=== PATIENT | female | born 2000 | race Caucasian/White ===

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

== ENCOUNTER → 2018-04-11 14:06 | Outpatient (CLI) | payer OTHER, SELFPAY ==
[2018-04-11 21:28] LABS: Chlamydia Trachomatis by PCR Negative (Negative); Neisserai gonorrhoeae by PCR Negative (Negative); Probe Check PASS; Sample Adequacy Control PASS; Specimen Processing Control PASS
== END ==
PROVIDERS: Visit Provider Obstetrics & Gynecology
DX: Z11.3 Encounter for screening for infections with a predominantly sexual mode of transmission (principal)
CPT/HCPCS: 87491; 87591

== ENCOUNTER → 2018-07-25 08:01 | Outpatient (CLI) | payer OTHER, SELFPAY ==
--- NOTE | 2018-07-25 08:17 | RAD_ITS ---
STUDY: AIR-CONTRAST UPPER GI SERIES AND SMALL BOWEL FOLLOW-THROUGH EXAMINATION. REASON FOR EXAM: Female, 18 years old. 3 month history of nausea and vomiting. FLUOROSCOPY TIME (if supplied): (1:00) minutes/seconds. 12 fluoroscopic images were obtained. TECHNIQUE: The patient ingested barium. Multiple images of the esophagus stomach and duodenum were obtained. Following this, a small bowel follow-through examination was performed. COMPARISON: None. FINDINGS: The esophagus is unremarkable. There is no evidence of obstruction. No evidence of gastroesophageal reflux. The stomach and duodenum are unremarkable. A small bowel follow-through examination was obtained. The transit time is normal. There is no evidence of intrinsic or extrinsic small bowel disease. The terminal ileum is unremarkable. RAD/Upper GI/w Small Bowel IMPRESSION: Unremarkable upper GI series and small bowel follow-through examination. Electronically Signed: Diego Luke MD at 11:38 EST Tel [phone], Service support ,
== END ==
PROVIDERS: Referring Provider Nurse Practitioner Adult Health; Visit Provider Nurse Practitioner Adult Health
DX: R11.2 Nausea with vomiting, unspecified (principal)
CPT/HCPCS: 74249

== ENCOUNTER 2018-12-04 09:00 | Outpatient (RCR) | payer OTHER, SELFPAY ==
--- NOTE | 2018-12-04 09:03 | BH.SGPN.GN ---
Behaviors/Verbalizations/Mental Status: []Client alert and oriented, casual dress, hygiene tended to. Eye contact fair. Motor activity appropriate. Speech within normal limits. Affect congruent, mood anxious. Tearful at times. Thoughts linear, logical, no signs of hallucinations or delusions. Reviewed client?s symptom tracker, no signs of suicidal ideation, plan, or intent as of today. Client Response/Progress/Benefit: []Pt was a passive participant, attentive to others and shared thoughts and feelings when elicited by therapist. Emotion for today is anxious. Pt shared she was supposed to start the program last week but talked myself out of it and stayed in bed instead. Pt stated this morning she made herself come because knows she needs help. Pt stated she is hoping to work on her PTSD, depression and anxiety. Pt's first day in IOP. Pt seemed to benefit from expressing thoughts and being in a supportive environment. Continued IOP level of care recommended to increase positive coping skills, decrease anxiety and prevent decompensation. Narrative Note: []
--- NOTE | 2018-12-04 10:07 | BH.SGPN.GN ---
Behaviors/Verbalizations/Mental Status: []Client alert and oriented, disheveled appearance. Eye contact good. Motor activity appropriate. Speech within normal limits. Affect flat, mood depressed, anxious. Thoughts linear, logical, no signs of hallucinations or delusions. Client Response/Progress/Benefit: []Client responded well to session, engaged during activity, but appearing frustrated as shown by nonverbals. Client occasionally contributing to discussion. Client was mostly quiet during discussion of social supports and the barriers that people face. However, she nodded in agreement that lacking healthy social supports can lead to more mental health issues. Client reported that she has put herself on the ?backburner? before because she was more focused on helping supports. Identified benefits of social support as less stress and having someone to listen. Client was engaged during the group activity and did well to manage emotions despite frustrations at times. Client communicated with peers and made connections to her daily life. Appeared to benefit from gaining awareness of barriers that keep people from seeking social support as well as connecting with peers. Client?s first day of IOP. No progress to document. Client to continue IOP to prevent decompensation and reduce intensity and duration of anxiety.
--- NOTE | 2018-12-04 13:16 | BH.COMM ---
Communication Note - Communication with Client Communication Note: Met with pt to complete initial paperwork for IOP. Pt was not expected to start this AM as she was scheduled to start last week and was a no-show. No signficant changes since pre-admission screening. Reports that she is most likely going to drop out of college this semester due to mental health. She denies any active suicidal ideations, plan, or intent. Reports anxiety and somatic symptoms (vomiting) related to anxiety about starting today.
--- NOTE | 2018-12-05 11:08 | BH.SGPN.GN ---
Behaviors/Verbalizations/Mental Status: [Pt eye contact fair, casually dressed, motor activity appropriate - displaying psychosomatic sx of anxiety EAB expressed nausea and leaving the room several times due to feeling overwhelmingly anxious, speech normal rate and tone, mood depressed and anxious, constricted affect, thoughts linear and intact, no evidence of delusions or hallucinations] Client Response/Progress/Benefit: [Pt receptive of session, provided some input to discussion though struggling with significant anxiety throughout which impacted ability to fully engage. Pt actively listening as group made connections between barriers faced in the challenge activity and those present in utilizing social supports in daily life. She did well to provide some contribution to discussion about the different types of support; however, left the room on occasion due to anxiety causing nausea. Upon return, pt attentive as the group identified strategies for improving development of new supports and utilization of current supports. This was evidenced by maintaining eye contact and nodding. Pt seemed to benefit from identifying a type of support she would like to improve upon and creating actionable steps to promote follow-through. Indicated wanting to improve personal support to increate connectedness with others. Expressed plans to do so by reaching out to her supports and communicating her concerns and needs. Client to continue IOP level of care to prevent decompensation, improve anxiety management, as well as maintain safety.] Narrative Note: []
--- NOTE | 2018-12-08 10:30 | BH.SGPN.GN ---
Addendum entered and electronically signed by ANTHONY Alston 08/20/19 22:41: Note amended to add process group #1 for this date as it was not previously added due to technical error. Please advise. process # of Participants:8 participants Goal of Group: [] The goal of today's group was to check-in with client's mood, stressors, and positives, and review goals Staff Interventions: [] Therapist used open-ended questions to elicit information about client's current stressors and mood state. Therapist was supportive by using active listening and reflection. AP - Behaviors/Verbalizations/Mental Status: [] Eye contact is good. Motor activity is appropriate. Appearance is casual. Speech is Appropriate. Mood is depressed, irritable. Affect is constricted. Thoughts are linear and logical. No evidence of psychosis. Reviewed daily check in sheet and pt reports suicidal ideations as a 3/5, denies intent. Therapist will follow-up to further assess for risk. Client Response/Progress/Benefit: [] Pt was a mostly participant in group discussion. Emotion for today is anxious. Shared that her she continues to be frustrated with her parents as she feels they don?t really understand what is impacting her mental health and noted that she does not quite feel comfortable enough to share with them the extent of her mental health stressors as she does not feel they will be able to handle it. 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 Discussed anxiety about an upcoming sorority formal event and indicated fearing the event may be a trauma trigger for her. Responded well and appeared to benefit from supportive feedback and calming strategies recommended by the group. Receptive of pro?s and con?s of going to the event versus not going. Progress in increased levels of engagement. Pt to continue in IOP to maintain safety, stabilize mood, reduce anxiety and depression, and prevent decompensation. Original Note: Behaviors/Verbalizations/Mental Status: []Client alert and oriented, neatly dressed and groomed. Eye contact good. Motor activity appropriate. Speech within normal limits. Affect congruent, mood euthymic, anxious. Thoughts linear, logical, no signs of hallucinations or delusions. Client Response/Progress/Benefit: []Client responded well to session, positive contributions. Client commented on the quote and shared ?it?s easier to stay in bed and close yourself off, but it?s not better.? Client appeared to connect with the topic of personal pitfalls and how they can prevent mental health progress. Client shared not using coping skills is an example of a personal pitfall. Client participated in the group activity and took on a leadership role. When the group continued to struggle client shared ?let?s be done.? The group was able to connect this back to their daily lives and how easy it can be to give up on the path to recovery. Client stated in order to overcome personal pitfalls one needs awareness and to regulate emotions. ?Client appeared to benefit from increasing self-awareness of personal pitfalls. Client?s first week in IOP. Client to continue IOP to prevent decompensation and increase mood stability.
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
--- NOTE | 2018-12-13 10:16 | BH.COMM ---
Communication Note - Communication with Client Communication Note: Pt scheduled for IOP group on this date however did not show or call to cancel. This therapist left a discrete message encouraging pt to reschedule. Will follow-up.
--- NOTE | 2018-12-14 09:50 | BH.COMM ---
Communication Note - Communication with Client Communication Note: Pt returned therapist call and indicated plans to attend group tomorrow, 12/14/18, and 12/15/18. Pt will meet for individual session on 12/14/18 as well.
--- NOTE | 2018-12-14 09:52 | BH.COMM ---
Communication Note - Communication with Client Communication Note: Pt scheduled for individual and group sessions on this date however did not show or call to cancel. This therapist attempted to reach out to reschedule however pt anable to be reached at this time. Will follow-up.
--- NOTE | 2018-12-15 09:05 | BH.SGPN.GN ---
Addendum entered and electronically signed by SELVIN Osuna 08/22/19 09:11: Addendum entered to include missing Group Psychotherapy Session Note #2. Group Topic: []Boundaries # of Participants: []9 Goal of Group: []To increase understanding of importance of boundaries and gain awareness of how boundaries can impact mental health. Staff Interventions: Therapist facilitated group discussion about defining boundaries. Therapist led discussion about importance of boundaries, assisting group members with identifying how boundaries can impact mental health. Therapist provided psychoeducation about the different types of boundaries. Therapist led activity to increase self-awareness of current boundary setting behaviors. Start Time: 10:18am Duration: 52 minutes Associate Creative Director: [facility] Behaviors/Verbalizations/Mental Status: Client alert and oriented, casually dressed and groomed. Eye contact fair. Motor activity appropriate. Speech within normal limits. Affect congruent to topic being discussed, mood anxious and dysthymic. Thoughts linear, logical, no signs of hallucinations or delusions. Client Response/Progress/Benefit: Client responded well to session, attentive and participating in small group discussion. Group identified the benefits to setting boundaries as well as the consequences of not setting healthy boundaries. Client stated she recognizes importance of setting boundaries and doesn?t typically have any problem with saying ?no? to others. Client reported she struggles with saying ?no? when it comes to her family. Client engaged during discussion of the different types of boundaries and engaged in the self-assessment activity. Client seemed to benefit from increased awareness how poor boundaries can negatively impact mental health. Client to continue IOP to increase coping and prevent decompensation. Original Note: Addendum entered and electronically signed by ANTHONY Alston 08/21/19 15:54: Amended to add missing second group documentation. Please advise. Group Topic: [Boundaries II] # of Participants: [5] Goal of Group: [To learn the different ways of setting boundaries and increase awareness of personal boundary style. Identify strategies to promote healthy boundaries. ] Staff Interventions: [Processed activity to help gain insight into current boundary setting behavior. Therapist provided psychoeducation about the three different ways of setting boundaries and led discussion about each style. Therapist had clients identify current boundary setting style and how current style is impacting their mental health. Therapist explored strategies to help promote healthy boundaries. ] Individual Note: Behaviors/Verbalizations/Mental Status: [Client alert and oriented, casual dress, hygiene appropriate. Eye contact good. Motor activity appropriate. Speech within normal limits. Affect congruent, mood agitated and dysthymic. Thoughts linear, logical, no signs of hallucinations or delusions. ] Client Response/Progress/Benefit: [Pt responded well to session, semi-active participant AEB willingness to provide input and take notes. Pt did well to engage in the boundary self-assessment activity and worked with group to further process. Pt discussed that she has been becoming much more aware of how her boundaries differ depending on the person and the impacts of inconsistent boundaries on her mental health. Appeared to benefit from group discussion on strategies for further improving personal boundaries. Identified wanting to improve her ability to be more assertive with her emotional boundaries and open to discussing her emotions with her supports rather than continuing to minimize or bottle up her emotions. Noted this reinforces sx of depression. Progress noted in pt ability to identify impact of current boundaries on mental health progress and emotion regulation skills. Pt to continue IOP tx to maintain gains made, improve communication and boundary setting skills, and continue to promote healthy change behaviors.] Original Note: Behaviors/Verbalizations/Mental Status: []Client alert and oriented, casually dressed and groomed. Eye contact good. Motor activity restless. Speech within normal limits. Affect congruent-tearful, mood anxious, depressed. Thoughts linear, logical, no signs of hallucinations or delusions. Reviewed client?s symptom tracker, 1/5 for thoughts of suicide. 0/5 for plan, or intent as of 12/15/18. Client Response/Progress/Benefit: []Client responded well to session, quiet, but participating when prompted. Client reports feeling ?disappointed and anxious.? Client reported she feels bad about not making it to group this week. Client shared she has been sick. Client reported she is also struggling because one of her close friends is ?being explosive and cruel? to client because client is leaving [employer]. Client shared she had to set a boundary with this friend, which client is proud of herself for doing, but she also felt sad about having to set the boundary. Client?s other mental health win is that she scheduled her move out day at school which she has been ?dragging my feet on.? Client appeared to benefit from connecting with peers. Due to inconsistent attendance, client?s progress is limited. Client to continue IOP to prevent decompensation and increase mood stability.
--- NOTE | 2018-12-15 09:55 | BH.COMM ---
Communication Note - Communication with Client Communication Note: Pt returned this therapist phone call and indicated that she had overslept today which is why she was not in attendance. Pt and therapist discussed concerns with inconsistent attendance and pt indicated understanding program attendance requirements. Pt expressed plans to attend IOP group tomorrow, 12/15/18 and will meet briefly with this therapist to reschedule missed individual session.
--- NOTE | 2018-12-18 15:45 | BH.COMM ---
Communication Note - Communication with Client Communication Note: Pt scheduled for IOP group and individual sessions on this date. Pt however reports suffering from a migraine and is unable to get out of bed to comw into group. Pt reports plans to attend IOP tomorrow, however will need to reschedule individual session.
--- NOTE | 2018-12-19 09:10 | BH.SGPN.GN ---
Behaviors/Verbalizations/Mental Status: [] Eye contact is good. Motor activity is appropriate. Appearance is casual. Speech is Appropriate. Mood is anxious/depressed. Affect is congruent. Thoughts are linear and logical. No evidence of psychosis. Reviewed daily check in sheet and reported 1/5/ for suicidal ideations and 0/5 for intent. Therapist notified Client Response/Progress/Benefit: [] Pt was an active participant in group discussion. Emotion for today is tense and anxious. Shared that she is moving back in with her parents today which is stressful and anxiety producing for her. Discussed stressor and conflict hx with parents. Reports feeling unsupported at home and thinks that parents don't appreciate or listen to her thoughts and concerns which further impacts her negative self-esteem, anxiety, and hopelessness. Group provided feedback and suggestions to improve communication. Pt appears to shut-down or avoid when challenged or overwhelmed. Pt was open to suggestions. Continues to report somatic symptoms associated with anxiety (vomiting, GI upset) which is impacting her ability to attend IOP on consistent basis. Continues to report panic on a semi-daily basis as well. Limited progress however poor attendance. Will continue in IOP to maintain safety, prevent decompensation, and improve daily functioning. Narrative Note: []
--- NOTE | 2018-12-19 10:15 | BH.SGPN.GN ---
Behaviors/Verbalizations/Mental Status: []Client alert and oriented, casually dressed. Eye contact good. Motor activity appropriate. Speech within normal limits. Affect constricted, mood dysthymic. Thoughts linear, logical, no signs of hallucinations or delusions. Client Response/Progress/Benefit: []Client responded well to session, providing occasional input and engaged in activity. Client commented on the quote and shared the load one carries is ?all the shit that happens to you like mental illness and trauma.? Client reported in order to carry the ?load? one needs healthy coping skills. Client reported healthy coping skills are more beneficial long-term. However, most people turn to unhealthy coping skills such as drugs or avoidance because of the short-term relief. Client engaged in the activity and was able to make the connection that one must have a strong base of internal and external coping skills. Client reported one cannot only rely on one person or one type of coping skill ?because if it doesn?t work then you have nothing.? Client appeared to benefit from increasing awareness of the importance of developing healthy coping skills. Progress continues to be limited due to variable attendance. Client to continue IOP to prevent decompensation and increase emotional regulation.
--- NOTE | 2018-12-19 11:20 | BH.SGPN.GN ---
Behaviors/Verbalizations/Mental Status: [Pt eye contact fair to good, casually dressed, motor activity appropriate, speech normal rate and soft tone, mood anxious and depressed, constricted affect, thoughts linear and intact - appearing distracted by own thoughts at times, no evidence of delusions or hallucinations.] Client Response/Progress/Benefit: [Pt mostly attentive to group discussion on different types of coping skills AEB maintaining eye contact and nodding; however, at times appearing to become distracted by own thoughts and disengaged. She identified connecting with the importance of practicing using different healthy coping skills to begin replacing unhealthy means for coping. Indicated often struggling with falling back on unhealthy habits during times of stress. Pt seemed to benefit from increasing repertoire of healthy coping skills and displayed progress in ability to recognize types of coping skills she would benefit from further developing. Identified wanting to improve use of self love related coping skills by practicing self-forgiveness. Pt recommended to continue IOP level of care to promote utilization of healthy coping skills, improve healthy decision making, improve emotion regulation, as well as prevent decompensation and maintain safety.] Narrative Note: []
--- NOTE | 2018-12-19 13:56 | BH.MDN ---
Multi-Disciplinary Note - Note 45-min Individual Time Started:: 12:22 Date: 12/19/18 Purpose of session/treatment goals addressed:: Purpose of session was to assess current sx, stressors, and means for coping. Another purpose was to discuss pt concerns in taking leave from school and moving home. Additional topics included completing treatment goals. Eye Contact:: Good, Other - tearful throughout Motor Activity:: Appropriate Appearance:: Casual Speech:: Appropriate Mood:: Anxious, Depressed Affect:: Congruent Thoughts:: Linear, Logical, Racing, No evidence of hallucinations/delusions noted Staff Interventions:: Therapist provided a safe environment for pt to vent frustration. Asked open ended questions to ellicit information reagrding pt sx, stressors, concerns, and meands for coping. Applied strengths-based approach and commended pt on improved attendance. Used MT techniques to increase insight regarding barriers to change and complete establishment of goals. Client Response:: Pt receptive of session and engaged throughout. Therapist commended pt for attending group on this date despite ongoing issues with illness impacting attendance. Pt indicated that she often struggles with migraine headaches and nausea causing physical illness which prevents her attendance and leads to anxiety of others judging her for being ill. She shared that due to continues physical symptoms as well as issues in managing her depression and anxiety, she has opted to take medical leave from [employer] [facility]. Pt shared that she decided to move home with her parents in [place] as she hoped this would reduce stress and provide her with the resources she needs to improve mental health sx; however, has begun to second-guess this decision. Went on to vent frustrations with her parent?s lack of empathy or understanding regarding pt mental health and noted feeling as though they are ashamed of her. She went on to describe a tense relationship with her father and believes that he has unrealistic expectations regarding her progress and level of functioning. Pt additionally expressed concerns about limited independence at home which she feels will worsen depression. Willing to work with this therapist on identifying benefits of moving home despite frustrations in and beginning to establish healthy ways of coping as she works on improving sx of depression and anxiety. Pt reports treatment goals of wanting to improve health boundary setting, increase self-esteem, decreased anxiety, and identify improved sense of purpose in life. Risks/Concerns:: Pt denies any active SI/HI at this time and indicates ability to maintain safety. She discussed motivations to live as increasing independence, her friends, and reaching future goals. Reports an ability to maintain safety and willing to seek help should she feel unable to. Pt does report ongoing issues with nausea and vomiting which impact ability to engage in regular daily activities as well as prevent ability to remain in IOP session for enire length of group and has led to poor attendance. Progress Toward Goals/Plan:: Some progress AEB increased attendance and willingness to engage. Progress unable to be fully assessed as pt has had multiple issues related to attendance and has only attended 2 full days of group and 3 half days since admission. Pt reports a strong desire to engage in the treatment process and improve her overall management of anxiety and depression. Pt able to identify one small goal as going for a hike at the local park after group. Will continue in IOP to increase coping skills, maintain safety, stabilize mood, and improve daily functioning.
--- NOTE | 2018-12-19 14:39 | BH.MDN_ITS ---
Multi-Disciplinary Note - Note 45-min Individual Time Started:: 12:22 Date: 12/19/18 Purpose of session/treatment goals addressed:: Purpose of session was to assess current sx, stressors, and means for coping. Another purpose was to discuss pt concerns in taking leave from school and moving home. Additional topics included completing treatment goals. Eye Contact:: Good, Other - tearful throughout Motor Activity:: Appropriate Appearance:: Casual Speech:: Appropriate Mood:: Anxious, Depressed Affect:: Congruent Thoughts:: Linear, Logical, Racing, No evidence of hallucinations/delusions noted Staff Interventions:: Therapist provided a safe environment for pt to vent frustration. Asked open ended questions to ellicit information reagrding pt sx, stressors, concerns, and meands for coping. Applied strengths-based approach and commended pt on improved attendance. Used [place] techniques to increase insight regarding barriers to change and complete establishment of goals. Client Response:: Pt receptive of session and engaged throughout. Therapist commended pt for attending group on this date despite ongoing issues with illness impacting attendance. Pt indicated that she often struggles with migraine headaches and nausea causing physical illness which prevents her attendance and leads to anxiety of others judging her for being ill. She shared that due to continues physical symptoms as well as issues in managing her dep ression and anxiety, she has opted to take medical leave from [employer] [facility] [employer]. Pt shared that she decided to move home with her parents in [place] as she hoped this would reduce stress and provide her with the resources she needs to improve mental health sx; however, has begun to second-guess this decision. Went on to vent frustrations with her parent?s lack of empathy or understanding regarding pt mental health and noted feeling as though they are ashamed of her. She went on to describe a tense relationship with her father and believes that he has unrealistic expectations regarding her progress and level of functioning. Pt additionally expressed concerns about limited independence at home which she feels will worsen depression. Willing to work with this therapist on identifying benefits of moving home despite frustrations in and beginning to establish healthy ways of coping as she works on improving sx of depression and anxiety. Pt reports treatment goals of wanting to improve health boundary setting, increase self-esteem, decreased anxiety, and identify improved sense of purpose in life. Risks/Concerns:: Pt denies any active SI/HI at this time and indicates ability to maintain safety. She discussed motivations to live as increasing independence, her friends, and reaching future goals. Reports an ability to maintain safety and willing to seek help should she feel unable to. Pt does report ongoing issues with nausea and vomiting which impact ability to engage in regular daily activities as well as prevent ability to remain in IOP session for enire length of group and has led to poor attendance. Progress Toward Goals/Plan:: Some progress AEB increased attendance and willingness to engage. Progress unable to be fully assessed as pt has had multiple issues related to attendance and has only attended 2 full days of group and 3 half days since admission. Pt reports a strong desire to engage in the treatment process and improve her overall management of anxiety and depression. Pt able to identify one small goal as going for a hike at the local park after group. Will continue in IOP to increase coping skills, maintain safety, stabilize mood, and improve daily functioning.
== END 2018-12-19 23:59 ==
LOC: BHIOP 09:00
PROVIDERS: Referring Provider Psychiatry & Neurology Psychiatry; Visit Provider Psychiatry & Neurology Psychiatry
DX: F33.2 Major depressive disorder, recurrent severe without psychotic features (principal); F41.1 Generalized anxiety disorder; F43.10 Post-traumatic stress disorder, unspecified; R11.2 Nausea with vomiting, unspecified; G43.909 Migraine, unspecified, not intractable, without status migrainosus; Z72.0 Tobacco use; Z79.899 Other long term (current) drug therapy; R45.851 Suicidal ideations; Z91.5 Personal history of self-harm; F12.90 Cannabis use, unspecified, uncomplicated
CPT/HCPCS: H0035; 90834; 90853

== ENCOUNTER 2018-12-21 09:00 | Outpatient (RCR) | payer OTHER, SELFPAY ==
--- NOTE | 2018-12-21 09:10 | BH.SGPN.GN ---
Behaviors/Verbalizations/Mental Status: [] Eye contact is good. Motor activity is appropriate. Appearance is casual. Speech is Appropriate. Mood is depressed. Affect is flat. Thoughts are linear and logical. No evidence of psychosis. Reviewed daily check in sheet with no reports of suicidal ideations. Client Response/Progress/Benefit: [] Pt was an active participant in group discussion. Shared with the group numerous struggles this week. Tearful during check-in. Reports that she feels like she has no control over her life or her future. Reports her anxiety is high and she is overwhelmed with everything. Upcming family event and she does not wish to talk about her dropping out of college and MH struggles. Group provided feedback that she can set limits and boundaries to the conversation. Group provided encouragement and feedback which she benefited from. Currently not using any skills. Does not feel in control of life and emotions. No progress noted. Will continue in IOP to prevent decompensation, stabilize emotions, and improve daily functioning. Narrative Note: []
--- NOTE | 2018-12-21 11:10 | BH.SGPN.GN ---
Behaviors/Verbalizations/Mental Status: []Client alert and oriented, casually dressed and groomed. Eye contact good. Motor activity appropriate. Speech within normal limits. Affect flat, mood dysthymic, anxious. Thoughts linear, logical, no signs of hallucinations or delusions. Client Response/Progress/Benefit: []Client responded well to session, active participant. Client further processed the group activity and shared that learning from mistakes and tuning out the negatives helped the group accomplish the activity. Client completed the fear of failure worksheet and, but she declined to share what fear of failure was keeping her from. Client reported unrealistic expectations and feeling like a disappointment to others are her barriers to overcoming fear of failure. Client shared ?no one has told me I?m a disappointment, but I feel that way.? Client helped the group identify strategies to overcome fear of failure and client selected a goal to help her overcome her fear of failure. Client?s goal is to work on self-acceptance and reminding herself it is normal to have setbacks. Client appeared to benefit from gaining awareness and setting a goal to reduce fear of failure. Client showing progress in increasing self-awareness of negative thoughts, but she continues to struggle with managing symptoms and emotional dysregulation. Client to continue IOP to prevent decompensation and increase use of coping skills.
--- NOTE | 2018-12-22 09:06 | BH.SGPN.GN ---
Behaviors/Verbalizations/Mental Status: []Client alert and oriented, casually dressed, hair unkempt. Eye contact good. Motor activity appropriate. Speech within normal limits. Affect flat-tearful, mood dysthymic, irritable, anxious. Thoughts linear, logical, no signs of hallucinations or delusions. Reviewed client?s symptom tracker, 1/5 for thoughts of suicide and 0/5 for intent and plan. Client reports this is her baseline. Client Response/Progress/Benefit: []Client responded well to session, appeared receptive to feedback from peers. Client reports feeling ?like shit? today. Client stated she has felt ?already discouraged? ever since moving home. Client shared her mother has been yelling at her and not giving her a chance to succeed. The group provided emotional support and ideas for increasing positive social support. Client identified her current mental health wins to be spending time with her grandparents yesterday as well as no isolating after IOP. Client reported she wanted to go home to her room after group, but instead she went to [facility] and had lunch with friends. Client appeared to benefit from receiving support from peers. Progress noted in client not isolating yesterday. However, client continues to struggle with managing her emotions in healthy ways and finding healthy supports.
--- NOTE | 2018-12-22 10:15 | BH.SGPN.GN ---
Behaviors/Verbalizations/Mental Status: []Client alert and oriented, casually dressed, hair unkempt. Eye contact good. Motor activity appropriate. Speech within normal limits. Affect congruent, mood irritable, dysthymic. Thoughts linear, logical, no signs of hallucinations or delusions. Client Response/Progress/Benefit: []Client was an active participant in group discussion and activity. Group worked together to identify the benefits of setting goals which included; increased motivation, maintenance in progress, accountability, sense of accomplishment, and hope. Group discussed the barriers to following through with completing a goals which included; high expectations, low motivation, negative self-talk, putting other?s needs first, hopelessness, and not knowing where to start. Client was attentive during psychoeducation on developing SMART (Specific, Measurable, Achievable, Realistic, Timely) goals as a tool to help with goal setting. Client was positive and helped the group set realistic goals during the activity. Benefited from group by learning effective strategies for goal-setting and identifying barriers to completing goals.
--- NOTE | 2018-12-27 11:23 | BH.SGPN.GN ---
Behaviors/Verbalizations/Mental Status: [Pt eye contact fair to good - often looking at phone, casually dressed, motor activity appropriate, speech normal rate and tone, mood dysthymic, congruent affect, thoughts linear and intact - appearing distracted by thoughts and items in room, no evidence of delusions or hallucinations.] Client Response/Progress/Benefit: [Pt receptive of session, provided some input throughout, though at times appeared to be distracted by own thoughts or her phone. However she did well to take notes and redirect attention. Pt worked with the group to make connections between the challenge activity and utilizing social supports in daily life. Reflected that a barrier in using current supports is lack of understanding. She improved in attentiveness during discussion on different types of support and benefits each can provide. Pt benefited from identifying a type of support she would like to improve and how this would aid in progress towards improving her own mental health. She indicated wanting to enhance personal supports to better connect with people outside of her family. Plans to do so by beginning to reach out and build trust with others. Pt to continue IOP level of care to prevent decompensation, reduce anxiety, and increase application of internal coping mechanisms.] Narrative Note: [.]
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
--- NOTE | 2018-12-28 10:12 | BH.SGPN.GN ---
Behaviors/Verbalizations/Mental Status: [Pt alert and oriented, casually dressed, appropriate grooming. Eye contact fair to good. Motor activity WNL. Speech appropriate rate/tone. Affect congruent, mood depressed and anxious. Thoughts linear, logical, no signs of hallucinations or delusions.] Client Response/Progress/Benefit: [Pt responded well to session, actively listening during discussion. Pt connected with the topic of communication, indicated agreeing with peers that ineffective communication can negatively impact mental health and relationships. Pt worked with group to identify potential communication potholes noting that tone and misinterpretation can impact effectiveness of communication. She helped the group discuss the different communication styles including the payoffs and costs of each. Pt discussed that passive-aggressive communication characteristics include lack of communication which may continue to prevent problems from being resolved. Pt appeared to benefit from increasing awareness of how communication impacts mental health. Progress noted in ability to engage with the group and begin connecting materials to own life. Recommended to continue IOP to promote healthy change behaviors, increase use of coping skills for depression and anxiety, and prevent decompensation. ] Narrative Note: []
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
--- NOTE | 2018-12-29 10:12 | BH.SGPN.GN ---
Behaviors/Verbalizations/Mental Status: [Eye contact is good. Motor activity WNL. Appearance is casual. Speech is Appropriate. Mood is agitated, euthymic. Affect is congruent. Thoughts are linear and logical. No evidence of psychosis.] Client Response/Progress/Benefit: [Pt was an active participant in group activity and discussion, provided input throughout reflection portion of activity. Pt worked with the group to define anger and its causes, as well as the internal and external impacts of anger. Discussed internal impacts of unhealthy anger which included; anxiety, guilt, and emotional exhaustion. Pt reports external impact of unhealthy anger as; relationship issues, difficulty meeting others expectations. Benefited from group by increasing awareness of the internal and external impacts of unhealthy anger. Progress noted in pt ability to identify her own anger related responses and the impact this has on her mental health and ability to communicate with supports. Continued IOP tx to decrease depression and anxiety, continue to promote healthy skill application, and prevent decompensation. ] Narrative Note: []
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
--- NOTE | 2019-01-03 10:15 | BH.SGPN.GN ---
Behaviors/Verbalizations/Mental Status: []Client alert and oriented, neatly dressed and groomed. Eye contact fair. Motor activity appropriate. Speech within normal limits. Affect flat, mood irritable, depressed, anxious. Thoughts linear, logical, no signs of hallucinations or delusions. Client Response/Progress/Benefit: []Client was active during the beginning of session, but then she became withdrawn. Client connected with the topic and able to identify common barriers that keep people stuck from moving forward. Client shared barriers are keeping her from happiness and feeling good in life. Client declined to share her current or desired reality, with the group. Client did identify her personal resilience factors in her current reality to be ?I?m still trying.? Worked with group to identify barriers to reaching desired reality which include; past experiences and mental health. Benefited from group as client received supportive statements from peers and increased awareness of internal barriers.
--- NOTE | 2019-01-04 15:42 | BH.COMM ---
Communication Note - Communication with Client Communication Note: Pt scheduled to attend IOP program for group and individual sessions on this date however did not show for scheduled appt. Therapist contacted pt who indicated oversleeping which is why she missed appointments for that day. Pt reports plans to attend IOP tx on next scheduled date, 01/05/19.
--- NOTE | 2019-01-05 15:32 | BH.COMM ---
Communication Note - Communication with Client Communication Note: Pt scheduled for IOP and individual sessions on this date. Pt called and spoke with the program nurse indicating that she would not be in attendance on this date and would return to group 01/08/19.
--- NOTE | 2019-01-08 09:10 | BH.SGPN.GN ---
Behaviors/Verbalizations/Mental Status: [] Eye contact is good. Motor activity is appropriate. Appearance is casual. Speech is Appropriate. Mood is anxious. Affect is congruent. Thoughts are linear and logical. No evidence of psychosis. Reviewed daily check in sheet and no reports of suicidal ideations or intent. Client Response/Progress/Benefit: [] Pt was an active participant in group discussion. Emotion for today is worried. Shared with the group that she had a good conversation with her family this past weekend while on a road trip. It was a conversation she had been avoiding however was able to be assertive and set boundaries with her father. The conversation centered around her current status, her mental health, and goals. Overall she felt that it went well and that her family was supportive, which has not always been the case. Increased confidence in her ability to manage her anxiety stating that she talked with family w/o having a panic attack. Progress noted per pt report. Benefited from group support, encouragement, and feedback. Will continue in IOP to maintain gains and decrease impact of MH on functioning. Narrative Note: []
--- NOTE | 2019-01-08 10:20 | BH.SGPN.GN ---
Behaviors/Verbalizations/Mental Status: []Client alert and oriented, casually dressed and groomed. Eye contact good. Motor activity appropriate. Speech within normal limits. Affect flat, mood depressed, irritable. Thoughts linear, logical, no signs of hallucinations or delusions. Client Response/Progress/Benefit: []Client responded well to session, contributing to discussion. Client appeared to connect with the topic of personal pitfalls and how they can prevent mental health progress. Client shared ?if we look back at pitfalls in anger, we reinforce our emotions and stay stuck.? Client identified examples of pitfalls such as lack of awareness, not using coping skills, and negative self-talk. Client reported self-awareness is talamantes in avoiding personal pitfalls. Client participated in the group activity and connected that without communication and self-awareness, it is nearly impossible to avoid pitfalls. Client able to use clear communication and calming strategies to help the group stay calm.? Client appeared to benefit from increasing self-awareness of how pitfalls impact mental health. Client is demonstrating progress as shown by her report of trying not to isolate. However, client continues to struggle with a depressed mood, crying spells, and emotional dysregulation.
--- NOTE | 2019-01-08 11:20 | BH.SGPN.GN ---
Behaviors/Verbalizations/Mental Status: []Client alert and oriented, casually dressed and groomed. Eye contact good. Motor activity appropriate. Speech within normal limits. Affect full, mood euthymic. Thoughts linear, logical, no signs of hallucinations or delusions. Client Response/Progress/Benefit: []Provided input throughout group discussion and was attentive to feedback from peers. Client completed a worksheet where she identified her own personal pitfalls. Personal pitfalls included: black and white thinking, tendency to engage in self-fulfilling prophecies, avoidance, rumination, and unrealistic expectations. Group worked together to identify strategies to overcome personal and general pitfalls which included; setting small goals, positive self-talk, looking at evidence to challenge negative thoughts, mindfulness, self-reflection, and practicing self-compassion. Client identified one pitfall she wants to work on preventing and one coping skill to help client do this. Client?s pitfall was rumination and her coping skill was to practice self-reflection and mindfulness when she catches herself ruminating. Benefited from identifying personal and general pitfalls and strategies to over these pitfalls. Client has made strides in increasing self-awareness, but she continues to report difficulty functioning at her baseline.
--- NOTE | 2019-01-09 07:58 | BH.MDN_ITS ---
Multi-Disciplinary Note - Note 45-min Individual Time Started:: 09:22 Date: 01/09/19 Purpose of session/treatment goals addressed:: Therapist asked open ended and furthering questions to gather additional information regarding pt's current symptoms, stressors, and progress in treatment. Therapist used empathic responses to provide emotional validation. Provided supportive feedback. Therapist applied HI techniques to promote healthy change behaviors. Provided a list of providers in the [facility] specializing in trauma specific counseling. Eye Contact:: Good Motor Activity:: Appropriate Appearance:: Casual Speech:: Appropriate Mood:: Euthymic Affect:: Congruent Thoughts:: Linear, Logical, No evidence of hallucinations/delusions noted Staff Interventions:: Therapist asked open ended and furthering questions to gather additional information regarding pt's current symptoms, stressors, and progress in treatment. Therapist used empathic responses to provide emotional validation. Provided supportive feedback. Therapist applied HI techniques to promote healthy change behaviors. Provided a list of providers in the [facility] specializing in trauma specific counseling. Client Response:: Pt open to meeting with this therapist and engaged throughout session. Discussed feeling more positive and less anxious on this date which she attributes to having a discussion with her parents about boundaries and their expectations for her regarding her mental health treatment and return to school. Shared they were more supportive than she had expected which was relieving. Went on to discuss feeling she has made improvements in managing her mental health symptoms of anxiety and depression, indicating noticing an overall decrease in sx severity. Shared spending less time isolating and even reached out to old friends in the area and played soccer. Discussed increased hope for her future and has experienced decreased panic and nausea episodes as a result. Shared feeling that she has benefited from IOP program but would like to discharge to begin individual trauma focused therapy as this is the area she feels is continuing to hold her back from additional progress. Additionally cited the commute from [place] as beginning to become more financially difficult and time consuming. Therapist in agreement with pt request to discharge to recieve more trauma specific counseling. Pt already connected with psychiatry services and was provided a list of trauma informed agencies in her area. Risks/Concerns:: None. Denied having any active suicidal ideations, plan, or intent as of this date. Progress Toward Goals/Plan:: Client has demonstrated progress with identifying and communicating her emotions and needs more regularly both in IOP and with positive supports. Client shared she has made progress in reducing symptoms of depression and anxiety but continues to experiences trauma triggers and related anxiety. She indicates that she would like to seek continued treatment in a trauma specific setting to continue to reduce anxiety and better manage triggers. Client reports utilizing healthy coping skills such as talking to her parents about her needs and concerns, spending time outside, and taking small steps to regulate her morning routine and spend less time in bed. Client continues to have anxiety, but has been challenging her negative thoughts and plans to follow up with outpatient counseling to continue progress with managing anxiety and fear Time Stopped:: 10:02
--- NOTE | 2019-01-09 10:20 | BH.SGPN.GN ---
Behaviors/Verbalizations/Mental Status: []Client alert and oriented, casually dressed and groomed. Eye contact good. Motor activity slowed. Speech within normal limits. Affect flat, mood depressed, anxious. Thoughts linear, logical, no signs of hallucinations or delusions. Client Response/Progress/Benefit: []Client receptive of session, mostly passive participant. Participated in the activity and was attentive to the discussion of the group topic of resilience. Client agreed with the group definition of resilience as being able to overcome adversity and ?spring back? despite lives challenges. Client listened to examples of how resilience can positively impact mental health and wellness. Client agreed with peers that being flexible and resilient has more benefits than being rigid and resistant. Client engaged in small group discussion about the various strategies that can help strengthen one's resilience and provided examples of the benefits of self-awareness and courage and confidence in increasing resilience. Client seemed to benefit from increased awareness of various components that can contribute to resilience. Progress limited as client continues to report depressed mood and difficulty with processing her trauma. Client may be more appropriate for ongoing trauma specific counseling.
--- NOTE | 2019-01-09 11:17 | BH.SGPN.GN ---
Behaviors/Verbalizations/Mental Status: [Client alert and oriented, casually dressed and appropriately groomed. Eye contact fair to good. Motor activity appropriate. Speech within normal limits. Affect congruent to topic being discussed, mood dysthymic. Thoughts linear, logical, no signs of hallucinations or delusions.] Client Response/Progress/Benefit: [Client engaged participant as evidenced by client providing input throughout discussion and listening attentively to peers. Client worked cooperatively with peers to identify how each resiliency factor can help increase personal resiliency. At times she appeared to disengage and became distracted by phone, though able to re-engage with prompt. Client reported she wants to work on the resiliency component of ?accept change as a part of living?. Client stated she will work on increasing personal resilience by challenging her perspective about her current living situation and spending time focusing on small positives each day. Client appeared to benefit from identifying goal to improve personal resilience factors. Client to continue IOP to continue use of healthy coping skills, continue to identify and challenge distorted thoughts, increase mood stability, and prevent decompensation.] Narrative Note: []
--- NOTE | 2019-01-10 07:59 | BH.AFTERPLAN ---
Aftercare Plan - Demographics Treatment End Date:: 01/10/19 Psychiatrist:: Rolando Cano Psychiatrist Office #:: [phone] [facility] [place] Therapist:: Araseli Clayton Therapist Phone #:: [phone] - Medications Home Medications: Home Medications ALPRAZolam [Xanax] 0.5 mg PO QHS PRN PRN 12/06/18 Duloxetine Hcl [Cymbalta] 90 mg PO DAILY 12/06/18 - Plan Details Progress/Aftercare Plan Details:: Client has demonstrated progress with identifying and communicating her emotions and needs more regularly both in [facility] and with positive supports. Client shared she has made progress in reducing symptoms of depression and anxiety but continues to experiences trauma triggers and related anxiety. She indicates that she would like to seek continued treatment in a trauma specific setting to continue to reduce anxiety and better manage triggers. During admission in IOP program she has seen improvement in her ability to complete daily tasks and has reduced use of sleeping as a primary coping mechanism. Client additionally reports a notable reduction in somatic symptoms indicating she has not had any recent stress induced nausea and is experiencing fewer headaches. Client reports she has increased awareness of warning signs and is taking steps to begin increasing socialization with supports outside of her family. Client reports utilizing healthy coping skills such as talking to her parents about her needs and concerns, spending time outside, and taking small steps to regulate her morning routine and spend less time in bed. Client continues to have anxiety, but has been challenging her negative thoughts and plans to follow up with outpatient counseling to continue progress with managing anxiety and fear. Strategies for Success:: 1. set small goals! Focus on one thing at a time! 2. Reach out and communicate with supports! Even when you don't feel like it. 3. Remind yourself that in this moment you are okay, remember to breathe and that you can walk away 4. Know your warning signs and limits! 5. SELF-CARE! 6. Challenge negative thoughts and focus on what you've progressed on so far, give yourself some credit for the fact that you are seeking help and working on managing your triggers. - Appointments Appointments/Referrals to Other Services:: Client encouraged to follow up with psychiatry with Dr. Washington. Client encouraged to follow up with outpatient counseling and has been given a list of recommended outpatient providers in her area who can provide more trauma focused treatment.
--- NOTE | 2019-01-18 16:35 | BH.IGGP_ITS ---
Aftercare Plan - Demographics Treatment End Date:: 01/10/19 Psychiatrist:: Rolando Cano Psychiatrist Office #:: [phone] [facility] Therapist:: Araseli Clayton Therapist Phone #:: [phone] - Medications Home Medications: Home Medications ALPRAZolam [Xanax] 0.5 mg PO QHS PRN PRN 12/06/18 Duloxetine Hcl [Cymbalta] 90 mg PO DAILY 12/06/18 - Plan Details Progress/Aftercare Plan Details:: Client has demonstrated progress with identifying and communicating her emotions and needs more regularly both in [facility] and with positive supports. Client shared she has made progress in reducing symptoms of depression and anxiety but continues to experiences trauma triggers and related anxiety. She indicates that she would like to seek continued tr eatment in a trauma specific setting to continue to reduce anxiety and better manage triggers. During admission in IOP program she has seen improvement in her ability to complete daily tasks and has reduced use of sleeping as a primary coping mechanism. Client additionally reports a notable reduction in somatic symptoms indicating she has not had any recent stress induced nausea and is experiencing fewer headaches. Client reports she has increased awareness of warning signs and is taking steps to begin increasing socialization with supports outside of her family. Client reports utilizing healthy coping skills such as talking to her parents about her needs and concerns, spending time outside, and taking small steps to regulate her morning routine and spend less time in bed. Client continues to have anxiety, but has been challenging her negative thoughts and plans to follow up with outpatient counseling to continue progress with managing anxiety and fear. Strategies for Success:: 1. set small goals! Focus on one thing at a time! 2. Reach out and communicate with supports! Even when you don't feel like it. 3. Remind yourself that in this moment you are okay, remember to breathe and that you can walk away 4. Know your warning signs and limits! 5. SELF-CARE! 6. Challenge negative thoughts and focus on what you've progressed on so far, give yourself some credit for the fact that you are seeking help and working on managing your triggers. - Appointments Appointments/Referrals to Other Services:: Client encouraged to follow up with psychiatry with Dr. Washington. Client encouraged to follow up with outpatient counseling and has been given a list of recommended outpatient providers in her area who can provide more trauma focused treatment.
--- NOTE | 2019-01-18 17:01 | BH.DS_ITS ---
Discharge Summary - Demographics Date of Admission:: 12/04/18 Discharge Date: 01/10/19 Presenting Problems at Admission:: The patient is a 18-year old female who was referred for treatment in the intensive outpatient mental health treatment program by her Mother who reports decreased functioning following a series of traumatic events at school. Pt referred for increased anxiety and depression resulting in panic attacks on an almost daily basis, difficulties managing anxiety and trauma triggers at college which has resulted in pt deciding to transfer to a college closer to home and commute, increased sleep, depression, and passive SI. Pt reports a history of anxiety and depression. Discharge Diagnoses:: Major Depressive Disorder, recurrent, severe; Generalized Anxiety Disorder; PTSD; polysubstance abuse and dependence Reason for Discharge:: Client has reported a desire to discharge from IOP program as she would like to peruse treatment focused on addressing trauma at the individual level. Given pt reduction in overall DSM-5 scores, no longer reports suicidal ideation, and indicates increased ability to begin taking small steps towards healthy skill application, this therapist is in agreement with pt request for discharge. Will provide referral resources for trauma specific counseling. - Treatment Progress During Treatment & Response: Client has demonstrated progress with identifying and communicating her emotions and needs more regularly both in IOP and with positive supports. Client shared she has made progress in reducing symptoms of depression and anxiety but continues to experiences trauma triggers and related anxiety. She indicates that she would like to seek continued treatment in a trauma specific setting to continue to reduce anxiety and better manage triggers. During admission in IOP program client struggled with maintaining consistent attendance and often cancelled or rescheduled appointments due to isolative behaviors, however did well to improve attendance as she began to experience decreased symptoms. She has seen improvement in her ability to complete daily tasks and has reduced use of sleeping as a primary coping mechanism. However, at times continues to fall back into relying on sleep as an avoidance mechanism and would benefit from continued work on promoting healthy change behaviors via behavior activation. Client additionally reports a notable reduction in somatic symptoms indicating she has not had any recent stress induced nausea and is experiencing fewer headaches. Client reports she has increased awareness of warning signs and is taking steps to begin increasing socialization with supports outside of her family. Client reports utilizing healthy coping skills such as talking to her parents about her needs and concerns, spending time outside, and taking small steps to regulate her morning routine and spend less time in bed. Despite identification of healthy coping skills, she continues to rely on substance use as her primary means for managing triggers causing anxiety and depression, which may have impeded further progress towards treatment goals. Client continues to have anxiety, but has been c hallenging her negative thoughts and plans to follow up with outpatient counseling to continue progress with managing anxiety and fear. Issues Still to be Addressed:: Pt can continue to benefit from ongoing work on improving self-esteem, improving management of intrusive thoughts and ruminations, and reducing isolation and avoidance as primary coping means which will improve familial and social functioning, as well as continue to challenge use of external locus of control. Discharge Recommendations/Instructions:: Client encouraged to follow up with psychiatry with Dr. Washington. Client encouraged to follow up with outpatient counseling and has been given a list of recommended outpatient providers in her area who can provide more trauma focused treatment. Discharge Handout: Complete Discharge Handout with client on aftercare options and continuity of care.
== END 2019-01-10 14:00 | disposition home or self-care (01) ==
LOC: BHIOP 09:00
PROVIDERS: Referring Provider Psychiatry & Neurology Psychiatry; Visit Provider Psychiatry & Neurology Psychiatry
DX: F33.9 Major depressive disorder, recurrent, unspecified (principal); F41.1 Generalized anxiety disorder; F43.10 Post-traumatic stress disorder, unspecified; F19.10 Other psychoactive substance abuse, uncomplicated
CPT/HCPCS: H0035; 90834; 90853

== ENCOUNTER → 2019-07-27 18:35 | Outpatient (CLI) | payer OTHER, SELFPAY | PROVIDERS: Referring Provider Obstetrics & Gynecology; Visit Provider Obstetrics & Gynecology | DX: Z12.4 Encounter for screening for malignant neoplasm of cervix (principal) ==

== ENCOUNTER → 2021-05-22 16:15 | Outpatient (CLI) | payer OTHER, SELFPAY ==
[2021-05-22 17:21] LABS: Absolute Lymphocyte Count 1.02 X10^3/uL (0.83-4.51); Absolute Neutrophil Count 9.4 X10^3/uL (2.0-7.7); Basophil# 0.02 X10^3/uL; Basophil% 0.2 % (0-1); Hematocrit 43.8 % (37-47); Hemoglobin 14.7 g/dL (12.0-15.0); Lymphocyte # 1.02 X10^3/ul (0.83-4.51); Lymphocyte % 9.3 % (19-41); Mean Corp Hgb Conc 33.6 g/dL (32-36); Mean Corpuscular Hgb 29.4 pg (27.0-32.0); Mean Corpuscular Volume 87.6 fL (81-99); Monocyte# 0.51 X10^3/uL; Monocyte% 4.6 % (0-10); NRBC Flagged by Analyzer 0 % (0-5); Neutrophil % 85.6 % (47-70); Platelet Count 284 K/mm3 (150-450); RBC Distribution Width CV 13.4 % (11.6-14.6); RBC Distribution Width SD 43.3 fl (35.1-43.9)
[2021-05-22 17:56] LABS: Vitamin B12 1021 pg/mL (211-911)
[2021-05-22 18:05] LABS: Erythrocyte Sedimentation Rate 14 mm/hr (0-30)
[2021-05-22 19:36] LABS: ALB/GLOB Ratio 1.2 RATIO (0.9-2.4); AST(SGOT) 9 U/L (15-37); Alanine Aminotransfer ALT/SGPT 17 U/L (13-56); Albumin, Serum 4.5 g/dL (3.2-5.0); Alkaline Phosphatase 53 U/L (45-117); Anion Gap 12 (5-15); BUN 7 mg/dL (7-18); BUN/Creat Ratio 8.6 RATIO (10-20); CRP < 2.90 mg/L (0.0-3.0); Calcium,Total 9.2 mg/dL (8.5-10.1); Chloride 107 mmol/L (98-107); Creatinine, Serum 0.81 mg/dL (0.55-1.02); EST Glomerular Filtration Rate 93 mL/min (>60); Est Glom Filt Rate - Afr Amer 112 mL/min (>60); Globulin 3.7 g/dL (2.2-4.2); Glucose 101 mg/dL (74-106); Potassium 3.4 mmol/L (3.5-5.1); Prolactin 9.4 ng/mL; Protein, Total 8.2 g/dL (6.4-8.2); Sodium Level 139 mmol/L (136-145); Thyroid Stim Hormone (TSH) 0.83 uIU/mL (0.358-3.74)
[2021-05-25 18:07] LABS: Endomysial Antibody IgA Negative (Negative)
[2021-05-25 23:25] LABS: Immunoglobulin A 118 mg/dL (87-352); t-Transglutaminase IgA <2 U/mL (0-3)
== END ==
PROVIDERS: PCP Internal Medicine; Visit Provider Internal Medicine Gastroenterology
DX: R11.2 Nausea with vomiting, unspecified (principal)
CPT/HCPCS: 36415; 80053; 82607; 82784; 83516; 84146; 84443; 85025; 85652; 86140; 86255

== ENCOUNTER 2021-05-26 12:27 | Day surgery (SDC) | payer OTHER, SELFPAY ==
[2021-05-26] VITALS (7 sets, daily range): BP systolic 101–130; BP diastolic 56–86; PULSE 65–81; RESP 16; TEMP 35.9–36.4; O2SAT 97–100; BMI 28.9
--- NOTE | 2021-05-26 | IMM_PTH ---
PATIENT: TJ KAMINSKI LOC: [facility] U#:[id number] AGE/SX: 21/F ROOM: RE05/26/[address]: Dr. Shree Cartwright DO : 2000 BED: DIS: 05/26/2021 SPEC #: [id number] RECD: 05/28/21 13:17 STATUS: SHEYLA REQ #: [id number] JUN: 05/26/21 00:[address]: Shree Cartwright DEPT: IMMUNOHISTOCHEMISTRY RECD BY: Savanah Lazcano ENTERED: 05/28/21 13:19 SP TYPE: IMMUNO OTHR DR: Dr. Nadeen Rodriguez DO Tissues: C - Ileum, NOS Procedures: BCL-2 (add) CD20 (add) CD45 (add) CD5 (add) CD79A (add) CD3 (initial) PHYSICIAN & INSTITUTION [facility] [id number] SPECIMEN INFORMATION: Tissue Source: C - Terminal ileum, biopsy Clinical Info: Nausea, vomiting, diarrhea Specimen Number: [id number] CPT code: 67337, 16356 x5 METHODOLOGY: Deparaffinized sections of prefer/formalin-fixed tissue or PAP/DQ stained slides are incubated with monoclonal/polyclonal antibodies/oligonucleotide probes. Localization is made via biotin free immunoperoxidase method. Appropriate controls are performed and reacted as expected. Results on target cell population are indicated in the following table: RESULTS: ANTIBODY / CLONE RESULT Block C CD3 (PS1) positive CD5 (SP10) positive CD20 (L26) positive CD79a (11E3) positive CD45 (RP2/18) positive BCL-2 (bcl-2/100/D5) negative (in germinal center) These tests were developed and their performance characteristics determined by [facility]. They may not have been cleared or approved by the U.S. Food and Drug Administration. The FDA has determined that such clearance or approval is not necessary. The above immunohistochemical/dualISH markers are ordered and reviewed by the Pathologist. INTERPRETATION: C. Terminal ileum, biopsy: Prominent lymphoid aggregates, polytypic in nature, favor benign. LILIBETH:rashaad 05/29/2021 Case has been reviewed in consultation with Dr. Claudio who concurs with the above diagnosis. IDC:AM
--- NOTE | 2021-05-26 | COLBX_PTH ---
PATIENT: TJ KAMINSKI LOC: [facility] U#:[id number] AGE/SX: 21/F ROOM: RE05/26/[address]: Dr. Shree Cartwright DO : 2000 BED: DIS: 05/26/2021 SPEC #: [id number] RECD: 05/26/21 15:30 STATUS: SHEYLA ADRYAN #: [id number] JUN: 05/26/21 00:[address]: Shree Cartwright DEPT: SURGICAL PATHOLOGY RECD BY: Tee Davila ENTERED: 05/27/21 09:53 SP TYPE: COLON BX OTHR DR: Dr. Nadeen Rodriguez DO Tissues: A - Duodenum, NOS B - Esophageal mucous membrane C - Ileum, NOS D - COLON BIOPSY Procedures: Special Stain Group II Surgery Specimen Level IV Alcian Blue/PAS (control) HEADER OPERATION: Colonoscopy, EGD ([facility] [place]) PRE-OP DIAGNOSIS: Nausea, vomiting, diarrhea TISSUE SUBMITTED: A ? Duodenum biopsy, B ? Distal esophagus biopsy, C ? Terminal ileum biopsy, D ? Random colonic biopsies MICROSCOPIC DIAGNOSIS A. Duodenum, biopsy: Fragments of duodenal mucosa with mild congestion, hemorrhage and Gema gland hyperplasia. B. Distal esophagus, biopsy: Fragments of gastroesophageal mucosa with mild chronic inflammation. Intestinal metaplasia (goblet cell metaplasia) is not identified. See comment. C. Terminal ileum, biopsy: Fragments of small intestinal mucosa with focal minimal acute inflammation. Prominent lymphoid aggregates, polytypic in nature, favor benign. D. Colon, random biopsy: Fragments of colonic mucosa, no pathologic diagnosis. SJ:rashaad 05/28/2021 COMMENT B. Alcian blue/PAS stain with matched control is used in the evaluation of the specimen. C. Prominent lymphoid aggregates are noted in all fragments of the specimen. One gland shows crypt abscess formation. Ulceration or granuloma are not seen. Immunohistochemistry ([id number]) shows lymphoid aggregates to be polytypic in nature, favor benign. Correlation with clinical, endoscopic findings and appropriate follow up are necessary. Case has been reviewed in consultation with Dr. Claudio who concurs with the above diagnosis. IDC:AM MICROSCOPIC DESCRIPTION Slides are reviewed. GROSS DESCRIPTION A - Received in fixative is one container labeled with the patient's name and designated duodenum biopsy. The specimen consists of multiple irregular fragments of light weiner soft tissue that in aggregate measure 0.5 x 0.4 x 0.1 cm. The specimen is totally submitted in one cassette. B - Received in fixative is one container labeled with the patient's name and designated distal esophagus biopsy. The specimen consists of multiple irregular fragments of light weiner soft tissue that in aggregate measure 0.5 x 0.3 x 0.1 cm. The specimen is totally submitted in one cassette. C - Received in fixative is one container labeled with the patient's name and designated terminal ileum biopsy. The specimen consists of multiple irregular fragments of light weiner soft tissue that in aggregate measure 1.5 x 0.3 x 0.1 cm. The specimen is totally submitted in one cassette. D - Received in fixative is one container labeled with the patient's name and designated random colonic biopsy. The specimen consists of multiple irregular fragments of light weiner soft tissue that in aggregate measure 1.5 x 0.7 x 0.1 cm. The specimen is totally submitted in one cassette. / SJ:rg 05/27/21 TC:3 CPT: 44005 x4, 75279
[2021-05-26] MEDS: Lactated Ringers 1,000 ML 100 ML IV (13:00)
[2021-05-26 13:11] LABS: Internal QC Validated? YES +Cl - CLEAR BKGD; Pregnancy, Urine Negative Negative
--- NOTE | 2021-05-26 13:54 | PCM.HP.BLA ---
History and Physical Date of Admission: 05/26/21 HPI HPI Details: TJ KAMINSKI, is a 21 F who presents to the office today for the evaluation of frequent and recurrent nausea nausea with vomiting. This developed about 3 years ago and she was seen in the office after developing acute onset nausea vomiting. She was at that time diagnosed with possible marijuana hyperemesis. She says that she was smoking quite frequently but has cut back and has not been smoking since this last severe episode of nausea vomiting. Since 05/05/21 her nausea with vomiting has gotten so bad that she has gone to the emergency room on 3 occasions to get IV fluids and IV potassium. Additional symptoms shakiness, black/green stool, pain located in stomach with secondary pain in her back. She has had similar episodes for the last three years that occurs a couple times a year lasting 4-5 days. ROS Const Constitutional: Positive for fatigue, fever(s), headache(s), weakness and weight change Eyes Eyes: Positive for blurry vision, irritation and Light sensitivity ENT ENT: Positive for headache(s), difficulty swallowing and sore throat; No tongue swelling or throat swelling Resp Respiratory: Positive for shortness of breath Cardio Cardiology: Positive for chest pain at rest, dyspnea on exertion and difficulty breathing Gastro GI: Positive for abdominal pain, bloating, change in bowel habits, diarrhea, heartburn, difficulty swallowing, Black,tarry stools, nausea/dyspepsia and vomiting Genitourinary-Female: No difficulty urinating or burning urination Musc Musculoskeletal: Positive for back pain, muscle cramps, muscle weakness, numbness, stiffness and tingling Skin Skin: Positive for dry skin and rash; No itchy eyes Neuro Neurology: Positive for weakness, headache(s), numbness and tingling Psych Psychiatric: Positive for anxiety, Positive for depression, Positive for Compulsive Behavior, Positive for inattentiveness, Positive for obsessions/compulsions, Positive for Temper Tantrums and Positive for other (Combative) Endo Endocrine: Positive for cold intolerance, fatigue, heat intolerance, increased thirst/drinking and weight change Aller/Imm Allergy/Immunologic: No itchy eyes, throat swelling or tongue swelling Alejandro/Lymp Hematologic/Lymphatic: No easy bleeding, easy bruising or enlarged lymph nodes Quality Reporting Tobacco Screening ([facility] 138) Smoking Status: Current some day smoker Assessment and Plan Assessment and Plan (1) Nausea & vomiting: Status: Acute Orders: Orders: Comprehensive Metabolic Profil Today CRP Today Erythrocyte Sed Rate Today Prolactin Today Celiac Disease Profile Today Thyroid Stim Hormone (TSH) Today Vitamin B12 Today CBC W/Diff, Automated Today Colonoscopy 05/26/21 EGD 05/26/21 Plan - Dr. Shree Cartwright, DO: The differential diagnosis for nausea vomiting though include cyclic vomiting syndrome along with marijuana hyperemesis. She had a gastric emptying study did not show any signs of gastroparesis. I am sure she has elements of gastroesophageal reflux disease. We will also evaluate for hiatal hernia, celiac disease and peptic ulcer disease. She also is on spironolactone which can cause nausea vomiting secondary to elevation in her prolactin level. I will draw a prolactin level. I will give her her a scopolamine patch, oral magnesium and a short course of alprazolam. I will also check a CMP, CBC, CRP, ESR, celiac disease profile, TSH, B12. (2) Diarrhea: Status: Acute Plan - Dr. Swann Friend, DO: The differential diagnosis for her diarrhea include IBS with diarrhea, less likely Crohn's disease, less likely infectious colitis and less likely microscopic colitis. She will undergo colonoscopy with evaluation of the terminal ileum and colon.
--- NOTE | 2021-05-26 14:41 | OP.EGD_ITS ---
Patient Name: Miguel Martin Procedure Date: 05/26/2021 1:51 PM Date of : 2000 Age: 21 Procedure: Upper GI endoscopy Indications: Epigastric abdominal pain Providers: Shree Cartwright DO Medicines: Monitored Anesthesia Care Patient Profile: This is a 21 year old female. Refer to note in patient chart for documentation of history and physical. Patient has symptoms. The symptoms first began March. Complications: No immediate complications. Procedure: Pre-Anesthesia Assessment: - Prior to the procedure, a History and Physical was performed, and patient medications and allergies were reviewed. The patient is competent. The risks and benefits of the procedure and the sedation options and risks were discussed with the patient. All questions were answered and informed consent was obtained. Patient identification and proposed procedure were verified by the physician in the pre-procedure area. Mental Status Examination: normal. Airway Examination: normal oropharyngeal airway and neck mobility. Respiratory Examination: clear to auscultation. CV Examination: normal. Prophylactic Antibiotics: The patient requires prophylactic antibiotics. Prior Anticoagulants: The patient has taken no previous anticoagulant or antiplatelet agents. ASA Grade Assessment: I - A normal, healthy patient. After reviewing the risks and benefits, the patient was deemed in satisfactory condition to undergo the procedure. The anesthesia plan was to use no sedation or anesthesia. Immediately prior to administration of medications, the patient was re-assessed for adequacy to receive sedatives. The heart rate, respiratory rate, oxygen saturations, blood pressure, adequacy of pulmonary ventilation, and response to care were monitored throughout the procedure. The physical status of the patient was re-assessed after the procedure. After obtaining informed consent, the endoscope was passed under direct vision. Throughout the procedure, the patient's blood pressure, pulse, and oxygen saturations were monitored continuously. The Endoscope was introduced through the mouth, and advanced to the second part of duodenum. The upper GI endoscopy was accomplished without difficulty. The patient tolerated the procedure well. Moderate Sedation: Moderate (conscious) sedation was administered by the endoscopy nurse and supervised by the endoscopist. The patient's oxygen saturation, heart rate, blood pressure and response to care were monitored. Scope In: 2:07:47 PM Scope Out: 2:11:43 PM Total Procedure Duration Time 0 hours 3 minutes 56 seconds Findings: LA Grade B (one or more mucosal breaks greater than 5 mm, not extending between the tops of two mucosal folds) esophagitis with no bleeding was found. Biopsies were taken with a cold forceps for histology. Estimated blood loss was minimal. The entire examined stomach was normal, except for a 1 cm hiatal hernia. Patchy mildly erythematous mucosa without active bleeding and with no stigmata of bleeding was found in the first portion of the duodenum. Biopsies for histology were taken with a cold forceps for evaluation of celiac disease. Estimated blood loss was minimal. Impression: - LA Grade B reflux esophagitis. Biopsied. - Normal stomach. - Erythematous duodenopathy. Biopsied. Recommendation: - Discharge patient to home. - Resume previous diet. - Continue present medications. - Await pathology results. - Repeat upper endoscopy in 1 year for surveillance. - Return to GI office in 1 week. Procedure Code(s): --- Professional --- 54343, Esophagogastroduodenoscopy, flexible, transoral; with biopsy, single or multiple CPT copyright 2017 [employer]. All rights reserved. The codes documented in this report are preliminary and upon inspector eyeglass review may be revised to meet current compliance requirements. Shree Cartwright DO 05/26/2021 2:40:34 PM This report has been signed electronically. Number of Addenda: 1 Note Initiated On: 05/26/2021 1:51 PM Addendum Number: 1 Addendum Date: 04/22/2022 4:18:06 PM MAC was used instead of moderate sedation for this patient. Shree Cartwright DO 04/22/2022 4:18:13 PM This report has been signed electronically.
--- NOTE | 2021-05-26 14:41 | OP.CCLET_ITS ---
04/22/2022 Nadeen Rodriguez Do Re : Upper GI endoscopy procedure for Miguel Martin Dear Michael This procedure was performed on Wednesday, May 26, 2021. My impressions and recommendations are as follows: Impressions : - LA Grade B reflux esophagitis. Biopsied. - Normal stomach. - Erythematous duodenopathy. Biopsied. Recommendations : - Discharge patient to home. - Resume previous diet. - Continue present medications. - Await pathology results. - Repeat upper endoscopy in 1 year for surveillance. - Return to GI office in 1 week. My findings are described in the full procedure note, which is enclosed. If I can be of further assistance, please feel free to contact me at . Sincerely, Shree Cartwright, 05/26/2021 2:40:34 PM This report has been signed electronically.
--- NOTE | 2021-05-26 14:46 | OP.CCLET_ITS ---
04/22/2022 Nadeen Rodriguez Do Re : Colonoscopy procedure for Miguel Martin Dear Michael This procedure was performed on Wednesday, May 26, 2021. My impressions and recommendations are as follows: Impressions : - Very poor rectal tone. found on perianal exam. - Congested mucosa in the sigmoid colon. - Mucosal ulceration. Biopsied. - Ileitis. Biopsied. Recommendations : - Discharge patient to home. - Resume previous diet. - Continue present medications. - Await pathology results. - Repeat colonoscopy in 5 years for surveillance. - Return to GI office in 1 week. My findings are described in the full procedure note, which is enclosed. If I can be of further assistance, please feel free to contact me at . Sincerely, Shree Cartwright, 05/26/2021 2:46:24 PM This report has been signed electronically.
--- NOTE | 2021-05-26 14:46 | OP.COLON_ITS ---
Patient Name: Miguel Martin Procedure Date: 05/26/2021 2:14 PM Date of : 2000 Age: 21 Procedure: Colonoscopy Indications: Chronic diarrhea Providers: Shree Cartwright DO Medicines: Monitored Anesthesia Care Patient Profile: This is a 21 year old female. Refer to note in patient chart for documentation of history and physical. Patient has symptoms. The symptoms first began March. She is status post EGD (normal) three years ago. Last Colonoscopy: none. The patient's first colonoscopy is today. Complications: No immediate complications. Procedure: Pre-Anesthesia Assessment: - Prior to the procedure, a History and Physical was performed, and patient medications and allergies were reviewed. The patient is competent. The risks and benefits of the procedure and the sedation options and risks were discussed with the patient. All questions were answered and informed consent was obtained. Patient identification and proposed procedure were verified by the physician in the pre-procedure area. Mental Status Examination: normal. Airway Examination: normal oropharyngeal airway and neck mobility. Respiratory Examination: clear to auscultation. CV Examination: normal. Prophylactic Antibiotics: The patient requires prophylactic antibiotics. Prior Anticoagulants: The patient has taken no previous anticoagulant or antiplatelet agents. ASA Grade Assessment: I - A normal, healthy patient. After reviewing the risks and benefits, the patient was deemed in satisfactory condition to undergo the procedure. The anesthesia plan was to use no sedation or anesthesia. Immediately prior to administration of medications, the patient was re-assessed for adequacy to receive sedatives. The heart rate, respiratory rate, oxygen saturations, blood pressure, adequacy of pulmonary ventilation, and response to care were monitored throughout the procedure. The physical status of the patient was re-assessed after the procedure. - Prior to the procedure, a History and Physical was performed, and patient medications and allergies were reviewed. The patient is competent. The risks and benefits of the procedure and the sedation options and risks were discussed with the patient. All questions were answered and informed consent was obtained. Patient identification and proposed procedure were verified by the physician in the pre-procedure area. Mental Status Examination: alert and oriented. Airway Examination: normal oropharyngeal airway and neck mobility. CV Examination: normal. Prophylactic Antibiotics: The patient does not require prophylactic antibiotics. Prior Anticoagulants: The patient has taken no previous anticoagulant or antiplatelet agents. ASA Grade Assessment: II - A patient with mild systemic disease. After reviewing the risks and benefits, the patient was deemed in satisfactory condition to undergo the procedure. The anesthesia plan was to use moderate sedation / analgesia (conscious sedation). Immediately prior to administration of medications, the patient was re-assessed for adequacy to receive sedatives. The heart rate, respiratory rate, oxygen saturations, blood pressure, adequacy of pulmonary ventilation, and response to care were monitored throughout the procedure. The physical status of the patient was re-assessed after the procedure. - Sedation was administered by an endoscopy nurse. The sedation level attained was moderate. - The heart rate, respiratory rate, oxygen saturations, blood pressure, adequacy of pulmonary ventilation, and response to care were monitored throughout the procedure. - The physical status of the patient was re-assessed after the procedure. After I obtained informed consent, the scope was passed under direct vision. Throughout the procedure, the patient's blood pressure, pulse, and oxygen saturations were monitored continuously. The colonoscope was introduced through the anus and advanced to the terminal ileum. The colonoscopy was performed without difficulty. The patient tolerated the procedure well. The quality of the bowel preparation was good. Moderate Sedation: Moderate (conscious) sedation was administered by the endoscopy nurse and supervised by the endoscopist. The patient's oxygen saturation, heart rate, blood pressure and response to care were monitored. Scope In: 2:17:37 PM Scope Withdrawal Time 0 hours 9 minutes 41 seconds Scope Out: 2:30:05 PM Total Procedure Duration Time 0 hours 12 minutes 28 seconds Findings: The perianal exam findings include Very poor rectal tone. An area of moderately congested mucosa was found in the sigmoid colon. A continuous area of nonbleeding ulcerated mucosa with no stigmata of recent bleeding was present in the sigmoid colon. Biopsies were taken with a cold forceps for histology. Verification of patient identification for the specimen was done. Estimated blood loss was minimal. Patchy inflammation, moderate in severity and characterized by congestion (edema), friability and linear erosions was found in the terminal ileum. Biopsies were taken with a cold forceps for histology. Verification of patient identification for the specimen was done. Estimated blood loss was minimal. Impression: - Very poor rectal tone. found on perianal exam. - Congested mucosa in the sigmoid colon. - Mucosal ulceration. Biopsied. - Ileitis. Biopsied. Recommendation: - Discharge patient to home. - Resume previous diet. - Continue present medications. - Await pathology results. - Repeat colonoscopy in 5 years for surveillance. - Return to GI office in 1 week. Procedure Code(s): --- Professional --- 44890, Colonoscopy, flexible; with biopsy, single or multiple CPT copyright 2017 [employer]. All rights reserved. The codes documented in this report are preliminary and upon pattern perforating machine operator review may be revised to meet current compliance requirements. Shree Cartwright DO 05/26/2021 2:46:24 PM This report has been signed electronically. Number of Addenda: 1 Note Initiated On: 05/26/2021 2:14 PM Addendum Number: 1 Addendum Date: 04/22/2022 4:18:23 PM MAC was used instead of moderate sedation for this patient. Shree Cartwright DO 04/22/2022 4:18:27 PM This report has been signed electronically.
== END 2021-05-26 15:44 | disposition home or self-care (01) ==
LOC: EN 12:28 → AC 12:30
PROVIDERS: Anesthesiology; PCP Internal Medicine; Referring Provider Internal Medicine; Visit Provider Internal Medicine Gastroenterology
PROC: 0DJD8ZZ Inspection of Lower Intestinal Tract, Via Natural or Artificial Opening Endoscopic (ICD-10-PCS; CPT 45378; principal; 2021-05-26 13:25)
DX: K21.00 Gastro-esophageal reflux disease with esophagitis, without bleeding (principal); K31.89 Other diseases of stomach and duodenum; K52.9 Noninfective gastroenteritis and colitis, unspecified; F41.0 Panic disorder [episodic paroxysmal anxiety]; F32.A Depression, unspecified; Z79.899 Other long term (current) drug therapy; Z87.891 Personal history of nicotine dependence
CPT/HCPCS: 43239; 45380; 81025; 88305; 88313; 88341; 88342; J7120; J2405

== ENCOUNTER → 2021-06-02 10:27 | Outpatient (CLI) | payer OTHER, SELFPAY | PROVIDERS: PCP Internal Medicine; Referring Provider Internal Medicine Gastroenterology; Visit Provider Internal Medicine Gastroenterology | DX: K52.9 Noninfective gastroenteritis and colitis, unspecified (principal) | CPT/HCPCS: 36415 ==

== ENCOUNTER → 2021-06-26 14:23 | Outpatient (CLI) | payer OTHER, SELFPAY ==
[2021-06-26 16:14] LABS: Progesterone Level 0.46 ng/mL (See Comment); T3 Total - Triiodothyronine 1.22 ng/mL (0.6-1.81)
[2021-06-26 16:19] LABS: Follicle Stimulating Hormone 5.6 mIU/mL; Free T3 3.3 pg/mL (2.18-3.98); Prolactin 3.4 ng/mL; T4 Free Direct 1.31 ng/dL (0.76-1.46); Thyroid Stim Hormone (TSH) 0.55 uIU/mL (0.358-3.74)
[2021-07-03 20:37] LABS: 17-Hydroxyprogesterone 26 ng/dL (.)
== END ==
PROVIDERS: PCP Internal Medicine; Visit Provider Obstetrics & Gynecology
DX: R63.5 Abnormal weight gain (principal); N92.6 Irregular menstruation, unspecified
CPT/HCPCS: 36415; 82533; 82627; 82670; 83001; 83498; 84144; 84146; 84270; 84403; 84439; 84443; 84480; 84481; 82626

== ENCOUNTER 2021-12-09 12:29 | Outpatient (CLI) | payer OTHER, SELFPAY ==
[2021-12-12 11:08] LABS: Chlamydia By Nucleic Acid AMP Negative (Negative)
[2021-12-12 11:26] LABS: Gonococcus By Nucleic Acid AMP Negative (Negative)
[2021-12-15 20:06] LABS: HPV Reflexed? NOT INDICATED
== END 2021-12-09 23:59 | disposition home or self-care (01) ==
LOC: LABSPEC 12:30
PROVIDERS: PCP Internal Medicine; Visit Provider Obstetrics & Gynecology
DX: Z12.4 Encounter for screening for malignant neoplasm of cervix (principal); Z11.3 Encounter for screening for infections with a predominantly sexual mode of transmission
CPT/HCPCS: 87491; 87591; 88175; G0145

== ENCOUNTER → 2022-06-04 | Outpatient (CLI) | payer OTHER, SELFPAY ==
--- NOTE | 2022-06-04 09:51 | NM_ITS ---
CLINICAL: 22-year-old diabetic female with history of chronic nausea. RADIONUCLIDE HEPATOBILIARY SCINTIGRAPHY COMPARISON: None available FINDINGS: Following the intravenous administration of 5.2 mCi of 99m Tc Mebrofenin, hepatobiliary images reveal: 1. Relatively prompt and homogeneous radiopharmaceutical concentration is noted by a normal sized liver. No parenchymal defects are identified. 2. Gallbladder activity is identified at 10 minutes post radiopharmaceutical administration. 3. Small intestinal tract is observed on the 60 minute acquisition following tracer injection. 4. Washout of the radiopharmaceutical by the hepatic parenchyma appears qualitatively normal. Cholecystokinin (0.02 ug/kg) was administered intravenously over a 30-minute period. The post CCK gallbladder ejection fraction calculated at 20 minutes following Cholecystokinin administration was noted to be 79.0 % (normal greater than 35%). During 30 minutes of post CCK imaging, there is no scintigraphic evidence of reflux of the radiotracer into the common hepatic duct or refilling of the gallbladder. NM/Hepatobilliary Img w/Pharm Int IMPRESSION: 1. NORMAL 99m Tc Mebrofenin hepatobiliary imaging examination with Cholecystokinin. A. A gallbladder ejection fraction calculated to be greater than 35% following the administration of Cholecystokinin makes the probability of functional hepatobiliary disease (gallbladder and/or sphincter of Oddi dyskinesia) and/or organic hepatobiliary disease (chronic acalculous cholecystitis and/or cystic duct syndrome) to be low. (Susanna Reese et al, Journal of Nuclear Medicine 32:1695, 1991). Electronically Signed: Chinedu Gil, at 9:00 EDT ,
== END | disposition home or self-care (01) ==
LOC: NM 09:50
PROVIDERS: PCP Internal Medicine; Visit Provider Nurse Practitioner Adult Health
DX: K82.8 Other specified diseases of gallbladder (principal); R11.2 Nausea with vomiting, unspecified
CPT/HCPCS: 78227; A9503

== ENCOUNTER → 2022-06-14 | Outpatient (CLI) | payer OTHER, SELFPAY ==
[2022-06-14 12:41] LABS: Absolute Lymphocyte Count 1.92 X10^3/uL (0.83-4.51); Absolute Neutrophil Count 4.7 X10^3/uL (2.0-7.7); Basophil# 0.05 X10^3/uL; Basophil% 0.7 % (0-1); Eosinophil# 0.09 X10^3/uL; Eosinophils% 1.2 % (0-5); Hematocrit 41.3 % (37-47); Hemoglobin 13.5 g/dL (12.0-15.0); Lymphocyte # 1.92 X10^3/ul (0.83-4.51); Lymphocyte % 26.4 % (19-41); Mean Corp Hgb Conc 32.7 g/dL (32-36); Mean Corpuscular Hgb 29.3 pg (27.0-32.0); Mean Corpuscular Volume 89.6 fL (81-99); Mean Platelet Vol. 9.6 fl (6.2-12.0); Monocyte# 0.45 X10^3/uL; Monocyte% 6.2 % (0-10); NRBC Flagged by Analyzer 0 % (0-5); Neutrophil # 4.73 X10^3/uL (2.7-7.7); Neutrophil % 65.2 % (47-70); Platelet Count 299 K/mm3 (150-450); RBC Distribution Width CV 12.9 % (11.6-14.6); RBC Distribution Width SD 42.6 fl (35.1-43.9); Red Blood Count 4.61 M/mm3 (4.2-5.4); White Blood Count 7.3 K/mm3 (4.4-11.0)
[2022-06-14 12:51] LABS: Prothrombin Time (Protime)PT. 13.2 SECONDS (11.7-14.9)
[2022-06-14 13:06] LABS: Ammonia < 10.0 umol/L (11-32)
[2022-06-14 13:13] LABS: Erythrocyte Sedimentation Rate 9 mm/hr (0-30)
[2022-06-14 14:07] LABS: ALB/GLOB Ratio 1.1 RATIO (0.9-2.4); AST(SGOT) 10 U/L (15-37); Alanine Aminotransfer ALT/SGPT 14 U/L (13-56); Alkaline Phosphatase 58 U/L (45-117); Anion Gap 8 (5-15); BUN 8 mg/dL (7-18); BUN/Creat Ratio 9.8 RATIO (10-20); Calcium,Total 8.9 mg/dL (8.5-10.1); Chloride 104 mmol/L (98-107); Creatinine, Serum 0.82 mg/dL (0.55-1.02); EST Glomerular Filtration Rate 91 mL/min (>60); Est Glom Filt Rate - Afr Amer 111 mL/min (>60); Ferritin 14 ng/mL (8-252); GGTP 15 U/L (5-55); Globulin 3.8 g/dL (2.2-4.2); Glucose 77 mg/dL (74-106); LDH 156 U/L (84-246); Potassium 3.7 mmol/L (3.5-5.1); Protein, Total 7.8 g/dL (6.4-8.2); Sodium Level 136 mmol/L (136-145)
[2022-06-14 14:12] LABS: Hemoglobin A1c 5.2 % (3.8-5.6)
[2022-06-14 14:13] LABS: HIV - WCH Non-Reactive (Nonreactive)
[2022-06-15 15:08] LABS: Anti-Centromere B Ab <0.2 AI (0.0-0.9); Anti-Chromatin <0.2 AI (0.0-0.9); Anti-Jo <0.2 AI (0.0-0.9); Anti-Scleroderma-70 AB 0.4 AI (0.0-0.9); RNP Ab <0.2 AI (0.0-0.9); SJOGREN'S Anti-SS-A test < 0.2 AI (0.0-0.9); SJOGREN'S Anti-SS-B test < 0.2 AI (0.0-0.9); Smith Ab <0.2 AI (0.0-0.9)
[2022-06-16 11:48] LABS: Anti-Mitochondrial AB <20.0 Units (0.0-20.0); Anti-dsDNA Ab <1 IU/mL (0-9)
[2022-06-16 13:08] LABS: Angiotensin Convert Enzyme 35 U/L (14-82); Ceruloplasmin 45.7 mg/dL (19.0-39.0); Cytoplasmic Ab (C-ANCA) <1:20 titer (Neg:<1:20); HEPATITIS B SURFACE AG Negative (Negative); Hep C Antibodies <0.1 s/co ratio (0.0-0.9); Hepatitis A IgM Antibody Negative (Negative); Hepatitis B Core AB IgM Negative (Negative)
[2022-06-16 18:23] LABS: AFP, Tumor Marker 2.1 ng/mL (0.0-4.7); Anti-Smooth Muscle ABS 8 Units (0-19); Copper, Serum or Plasma 193 ug/dL (80-158); Haptoglobin 158 mg/dL (33-278); Perinuclear Ab (P-ANCA) <1:20 titer (Neg:<1:20)
== END | disposition home or self-care (01) ==
LOC: LAB 11:57
PROVIDERS: PCP Internal Medicine; Referring Provider Nurse Practitioner Adult Health; Visit Provider Nurse Practitioner Adult Health
DX: R17 Unspecified jaundice (principal); R93.2 Abnormal findings on diagnostic imaging of liver and biliary tract
CPT/HCPCS: 36415; 80053; 80074; 82105; 82140; 82164; 82248; 82390; 82525; 82728; 82977; 83010; 83036; 83516; 83615; 85025; 85610; 85652; 86140; 86225; 86235; 86256; 86703

== ENCOUNTER → 2022-10-01 | Outpatient (CLI) | payer OTHER, SELFPAY ==
--- NOTE | 2022-10-01 11:23 | MRI_ITS ---
INDICATION: dilated intrahepatic bile ducts, abnl liver labs EXAMINATION: MRI - MR MRCP and Abdomen W/O Contrast TECHNIQUE: Multiplanar and multisequence MR images of the abdomen were obtained with MRCP sequence. Three-dimensional post-processing reconstructions were performed. IV Contrast Dosage and Agent: None. COMPARISON: None. FINDINGS: LIVER: No mass. Normal morphology. GALLBLADDER AND BILIARY TREE: No gallstones. No gallbladder distension or wall edema. The CBD measures 2 mm. No intra- or extrahepatic biliary dilation. No choledochal filling defect. PANCREAS: No mass. No pancreatic duct dilation. SPLEEN: Non-enlarged. ADRENAL GLANDS: No nodules. KIDNEYS: Normal renal size and position. No hydronephrosis. No mass. LYMPH NODES: No enlarged periportal or retroperitoneal lymph nodes. PERITONEUM: No ascites or fluid collection. VESSELS: Aorta is non-dilated. LOWER CHEST: No pleural effusion. MRI/MRCP Abdomen without Contrast IMPRESSION: Unremarkable MRCP. No biliary dilation or choledocolithiasis. Electronically Signed: Maulik Gentile MD at 17:15 EST ,
== END | disposition home or self-care (01) ==
PROVIDERS: PCP Internal Medicine; Referring Provider Nurse Practitioner Adult Health; Visit Provider Nurse Practitioner Adult Health
DX: R93.2 Abnormal findings on diagnostic imaging of liver and biliary tract (principal); K83.9 Disease of biliary tract, unspecified
CPT/HCPCS: 74181